=== PATIENT | female | born 1995 | race Caucasian/White ===

== ENCOUNTER 2017-01-27 08:55 | Emergency (ER) | payer BC ==
[~2017-01-27] VITALS: Ht 167.6 cm; Wt 60.0 kg
[2017-01-27 08:55] VITALS: Ht 167.6 cm; Wt 60.0 kg
[~2017-01-27 08:55] MED LIST: AMOX500C2 PO; HYDR-3989 PO; ONDA-55 PO; PHEN20SP2 PO
--- OUTSIDE RECORDS SUMMARY | 2017-01-27 09:00 | XMS REPORT | Referral Summary ---
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 Name Role Phone Josselyn Goyal Primary Care Physician [phone] Encounter [facility] [id number] Date(s): 12/30/14 - 12/30/14 Via JACK Bellamy, Yosef, Family Medicine [address] [place] [address] Dr Navas, [place] [id number] Discharge Diagnosis: ACUTE PHARYNGITIS Discharge Diagnosis: Sore throat Discharge Disposition: Home or Self Care Attending Physician: Karla Calloway APRN Admitting Physician: Karla Calloway APRN Vital Signs Most recent to 1 oldest [Reference Range]: Temperature Tympanic 36.7 degC [36.6-38.1 degC] (12/30/14 1:05 PM) Blood Pressure 124/82 mmHg [90-140/60-90 mmHg] (12/30/14 1:05 PM) Problem List No data available for this section Allergies, Adverse Reactions, Alerts No Known Medication Allergies Medications Anaprox-DS 550 mg oral tablet 1 tabs, Oral, BID, # 60 tabs, 0 Refill(s), Pharmacy: [facility] #[id number], 1 tabs Oral BID Start Date: 12/24/14 Status: Ordered ibuprofen 800 mg oral tablet 1 tabs, Oral, TID, # 60 tabs, 1 Refill(s), Pharmacy: [facility] #[id number], 1 tabs Oral TID Start Date: 11/23/14 Status: Ordered ibuprofen 800 mg oral tablet 1 tabs, Oral, TID, # 60 tabs, 3 Refill(s), Pharmacy: [facility] #[id number], 1 tabs Oral TID Start Date: 12/24/14 Status: Ordered isometheptene/dichloralphenazon/acetaminophen 65 mg-100 mg-325 mg oral capsule See Instructions, 1-2 capsules on onset of ESPINOZA followed by 1 capsule every 1 hour up to 5 capsules per 12 hour period, # 30 tabs, 0 Refill(s) Special Instructions: 1-2 capsules on onset of ESPINOZA followed by 1 capsule every 1 hour up to 5 capsules per 12 hour period Start Date: 12/24/14 Status: Ordered Zithromax Z-Edward 250 mg oral tablet 1 packets, Oral, Daily, as directed on package labeling, X 5 days, # 6 tabs, 0 Refill(s), Pharmacy: [facility] #[id number], 1 packets Oral Daily,x5 days, Instr:as directed on package labeling Special Instructions: as directed on package labeling Start Date: 12/30/14 Stop Date: 01/04/15 Status: Ordered Results No data available for this section Immunizations Vaccine Date Refusal Reason varicella virus vaccine 05/22/99 Procedures No data available for this section Social History No data available for this section Assessment and Plan Extracted from: Title: Ambulatory Patient Education Author: Karla Calloway APRN Date: Allergy Sore Throat A sore throat is pain, burning, irritation, or scratchiness of the throat. There is often pain or tenderness when swallowing or talking. A sore throat may be accompanied by other symptoms, such as coughing, sneezing, fever, and swollen neck glands. A sore throat is often the first sign of another sickness, such as a cold, flu, strep throat, or mononucleosis (commonly known as mono). Most sore throats go away without medical treatment. CAUSES The most common causes of a sore throat include: A viral infection, such as a cold, flu, or mono. A bacterial infection, such as strep throat, tonsillitis, or whooping cough. Seasonal allergies. Dryness in the air. Irritants, such as smoke or pollution. Gastroesophageal reflux disease (GERD). HOME CARE INSTRUCTIONS Only take vuyk-iin-aivrzue medicines as directed by your caregiver. Drink enough fluids to keep your urine clear or pale yellow. Rest as needed. Try using throat sprays, lozenges, or sucking on hard candy to ease any pain (if older than 4 years or as directed). Sip warm liquids, such as broth, herbal tea, or warm water with honey to relieve pain temporarily. You may also eat or drink cold or frozen liquids such as frozen ice pops. Gargle with salt water (mix 1 tsp salt with 8 oz of water). Do not smoke and avoid secondhand smoke. Put a cool-mist humidifier in your bedroom at night to moisten the air. You can also turn on a hot shower and sit in the bathroom with the door closed for 510 minutes. SEEK IMMEDIATE MEDICAL CARE IF: You have difficulty breathing. You are unable to swallow fluids, soft foods, or your saliva. You have increased swelling in the throat. Your sore throat does not get better in 7 days. You have nausea and vomiting. You have a fever or persistent symptoms for more than 23 days. You have a fever and your symptoms suddenly get worse. MAKE SURE YOU: Understand these instructions. Will watch your condition. Will get help right away if you are not doing well or get worse. Document Released: 11/21/2005 Document Revised: 09/30/2013 Document Reviewed: [employer] Patient Information 2014 [employer]. Dentistry Salt Water Gargle This solution will help make your mouth and throat feel better. HOME CARE INSTRUCTIONS Mix 1 teaspoon of salt in 8 ounces of warm water. Gargle with this solution as much or often as you need or as directed. Swish and gargle gently if you have any sores or wounds in your mouth. Do not swallow this mixture. Document Released: 07/18/2005 Document Revised: 01/05/2013 Document Reviewed: ExitCare Patient Information 2014 [employer]. Family Medicine Upper Respiratory Infection, Adult An upper respiratory infection (URI) is also sometimes known as the common cold. The upper respiratory tract includes the nose, sinuses, throat, trachea, and bronchi. Bronchi are the airways leading to the lungs. Most people improve within 1 week, but symptoms can last up to 2 weeks. A residual cough may last even longer. CAUSES Many different viruses can infect the tissues lining the upper respiratory tract. The tissues become irritated and inflamed and often become very moist. Mucus production is also common. A cold is contagious. You can easily spread the virus to others by oral contact. This includes kissing, sharing a glass, coughing, or sneezing. Touching your mouth or nose and then touching a surface, which is then touched by another person, can also spread the virus. SYMPTOMS Symptoms typically develop 1 to 3 days after you come in contact with a cold virus. Symptoms vary from person to person. They may include: Runny nose. Sneezing. Nasal congestion. Sinus irritation. Sore throat. Loss of voice (laryngitis ). Cough. Fatigue. Muscle aches. Loss of appetite. Headache. Low-grade fever. DIAGNOSIS You might diagnose your own cold based on familiar symptoms, since most people get a cold 2 to 3 times a year. Your caregiver can confirm this based on your exam. Most importantly, your caregiver can check that your symptoms are not due to another disease such as strep throat, sinusitis, pneumonia, asthma, or epiglottitis. Blood tests, throat tests, and X-rays are not necessary to diagnose a common cold, but they may sometimes be helpful in excluding other more serious diseases. Your caregiver will decide if any further tests are required. RISKS AND COMPLICATIONS You may be at risk for a more severe case of the common cold if you smoke cigarettes, have chronic heart disease (such as heart failure) or lung disease ( such as asthma), or if you have a weakened immune system. The very young and very old are also at risk for more serious infections. Bacterial sinusitis, middle ear infections, and bacterial pneumonia can complicate the common cold. The common cold can worsen asthma and chronic obstructive pulmonary disease ( COPD). Sometimes, these complications can require emergency medical care and may be life-threatening. PREVENTION The best way to protect against getting a cold is to practice good hygiene. Avoid oral or hand contact with people with cold symptoms. Wash your hands often if contact occurs. There is no clear evidence that vitamin C, vitamin E, echinacea, or exercise reduces the chance of developing a cold. However, it is always recommended to get plenty of rest and practice good nutrition. TREATMENT Treatment is directed at relieving symptoms. There is no cure. Antibiotics are not effective, because the infection is caused by a virus, not by bacteria. Treatment may include: Increased fluid intake. Sports drinks offer valuable electrolytes, sugars, and fluids. Breathing heated mist or steam (vaporizer or shower). Eating chicken soup or other clear broths, and maintaining good nutrition. Getting plenty of rest. Using gargles or lozenges for comfort. Controlling fevers with ibuprofen or acetaminophen as directed by your caregiver. Increasing usage of your inhaler if you have asthma. Zinc gel and zinc lozenges, taken in the first 24 hours of the common cold, can shorten the duration and lessen the severity of symptoms. Pain medicines may help with fever, muscle aches, and throat pain. A variety of non-prescription medicines are available to treat congestion and runny nose. Your caregiver can make recommendations and may suggest nasal or lung inhalers for other symptoms. HOME CARE INSTRUCTIONS Only take ztli-lrt-jeisztx or prescription medicines for pain, discomfort, or fever as directed by your caregiver. Use a warm mist humidifier or inhale steam from a shower to increase air moisture. This may keep secretions moist and make it easier to breathe. Drink enough water and fluids to keep your urine clear or pale yellow. Rest as needed. Return to work when your temperature has returned to normal or as your caregiver advises. You may need to stay home longer to avoid infecting others. You can also use a face mask and careful hand washing to prevent spread of the virus. SEEK MEDICAL CARE IF: After the first few days, you feel you are getting worse rather than better. You need your caregiver's advice about medicines to control symptoms. You develop chills, worsening shortness of breath, or brown or red sputum. These may be signs of pneumonia. You develop yellow or brown nasal discharge or pain in the face, especially when you bend forward. These may be signs of sinusitis. You develop a fever, swollen neck glands, pain with swallowing, or white areas in the back of your throat. These may be signs of strep throat. SEEK IMMEDIATE MEDICAL CARE IF: You have a fever. You develop severe or persistent headache, ear pain, sinus pain, or chest pain. You develop wheezing, a prolonged cough, cough up blood, or have a change in your usual mucus (if you have chronic lung disease). You develop sore muscles or a stiff neck. Document Released: 04/09/2002 Document Revised: 01/05/2013 Document Reviewed: [facility] Patient Information 2014 [employer]. Viral and Bacterial Pharyngitis Pharyngitis is a sore throat. It is an infection of the back of the throat ( pharynx ). HOME CARE Only take medicine as told by your doctor. You may get sick again if you do not take medicine as told. Drink enough fluids to keep your pee (urine ) clear or pale yellow. Rest. Rinse your mouth (gargle ) with salt water ( teaspoon of salt in 8 ounces of water) every 1 to 2 hours. This will help the pain. For children over the age of 7, suck on hard candy or sore throat lozenges. GET HELP RIGHT AWAY IF: There are large, tender lumps in your neck. You have a rash. You cough up green, yellow-brown, or bloody mucus. You have a stiff neck. There is redness, puffiness (swelling ), or very bad pain anywhere on the neck. You drool or are unable to swallow liquids. You throw up (vomit ) or are not able to keep medicine or liquids down. You have very bad pain that will not stop with medicine. You have problems breathing (not from a stuffy nose). You cannot open your mouth completely. You or your child has a temperature by mouth above 102 F (38.9 C), not controlled by medicine. Your baby is older than 3 months with a rectal temperature of 102 F (38.9 C) or higher. Your baby is 3 months old or younger with a rectal temperature of 100.4 F (38 C) or higher. MAKE SURE YOU: Understand these instructions. Will watch this condition. Will get help right away if you or your child is not doing well or gets worse. Document Released: 04/01/2009 Document Revised: 01/05/2013 Document Reviewed: ExitCare Patient Information 2014 [employer]. No follow up information was provided. Extracted from: Title: Office Visit Note Author: Karla Calloway APRN Date: 12/30/14 Assessment/Plan 1.ACUTE PHARYNGITIS, Sore throat Rapid strep inoffice-Negative, will call pt. with cx results when available. Saline nasal washes am and pm. Saline Nasal spray or gel as needed. Increase oral fluids and environmental humidity. Salt water gargles, throat lozenges, Raw honey, throat spray as needed for comfort. OTC pain reliever/ fever commutator tester of choice, per package directions. RTC/IC/ER if symptoms not improving or worsen. Ordered: Office Visit Level 3 Est [id number] Orders: azithromycin, 1 packets, Oral, Daily, as directed on package labeling , X 5 days, # 6 tabs, 0 Refill(s), Pharmacy: [facility] #[id number], 1 packets Oral Daily,x5 days,Instr:as directed on package labeling Group A Strep Culture
--- OUTSIDE RECORDS SUMMARY | 2017-01-27 09:00 | XMS REPORT | Continuity of Care Document ---
Author Author [facility] Organization [facility] Address Unknown Phone Unavailable Support Name Relationship Address Phone RAJINDER MONTESINOS Caregiver [facility] [address] [place] [address] EASTON VELASQUEZ MD Caregiver [address] [place] [address] LISBETH AVILES Next Of Kin [address] [place] [address] Insurance Providers Payer Name Policy Number Subscriber Name Relationship [employer] Other [id number] Lisbeth Aviles L 19 Child Problems Medical Problems Problem Onset Date Status Concussion Unknown Active Possible hairline fracture of spinous process Unknown Active Right ankle strain Unknown Active Right ankle strain Unknown Active Medications Medication Dose Route Sig Days/Qty Instructions Order Date Discontinued Date Status [Topamax] PO DAILY 01/18/14 Active Social History Social History Problem Response Recorded Date/Time Chewing Tobacco Status No 01/18/2014 9:42pm Hx Substance Use No 01/18/2014 9:42pm Hx Alcohol Use No 01/18/2014 9:42pm Query Response Start Date Stop Date Smoking Status Never smoker Hospital Discharge Instructions No hospital discharge instructions. Plan of Care No plan of care. Functional Status Query Response Date Recorded Mental Status Alert Oriented July 24, 2014 10:57pm Allergies, Adverse Reactions, Alerts Allergen Type Severity Reaction Status Last Updated No Known Allergies Active 07/24/14 Immunizations No immunization records. Vital Signs Acute Vital Signs Vital Response Date/Time Temperature (Fahrenheit) 98.6 deg F (96.8 - 99.1) Temperature (Calculated Celsius) 37.24617 degrees C (36.0 - 37.3) Pulse Rate (adult) 93 bpm (60 - 100) Respiratory Rate 16 breaths/min (10 - 20) O2 Sat by Pulse Oximetry 98 % (90 - 100) Blood Pressure 121/61 mm Hg Height (Feet) 5 feet Height (Inches) 6 inches Weight (Kilograms) 59 kg Body Mass Index (BMI) 20.0 Results Test Source Date Result Interp. Ref. Range Comments Alanine Aminotransferase (ALT/SGPT) May 13, 2012 7:15pm < 6 U/L L 9-52 Albumin May 13, 2012 7:15pm 4.3 G/DL N 3.5-5.0 Albumin/Globulin Ratio May 13, 2012 7:15pm 1.3 RATIO N 1.1-2.2 Alkaline Phosphatase May 13, 2012 7:15pm 90 U/L L 130-550 Anion Gap May 13, 2012 7:15pm 14 MEQ/L N 5-15 Aspartate Amino Transf (AST/SGOT) May 13, 2012 7:15pm 21 U/L N 10-40 BUN/Creatinine Ratio May 13, 2012 7:15pm 13 RATIO N 6-26 Basophils # (Auto) May 13, 2012 7:15pm 0.1 T/MM3 N 0-0.2 Basophils (%) (Auto) May 13, 2012 7:15pm 0.9 % N 0-2 Blood Urea Nitrogen May 13, 2012 7:15pm 8.0 MG/DL N 7-17 Calcium Level May 13, 2012 7:15pm 9.2 MG/DL N 8.4-10.2 Calculated Osmolality May 13, 2012 7:15pm 272 MOSM/KG N 261-280 Carbon Dioxide Level May 13, 2012 7:15pm 25 MEQ/L N 22-30 Chloride Level May 13, 2012 7:15pm 103 MEQ/L N 98-107 Creatinine May 13, 2012 7:15pm 0.6 MG/DL N 0.2-1.2 Eosinophils # (Auto) May 13, 2012 7:15pm 1.0 T/MM3 H 0-0.5 Eosinophils (%) (Auto) May 13, 2012 7:15pm 11.4 % H 0-4 Globulin May 13, 2012 7:15pm 3.4 G/DL N 2.4-3.6 Glucose Level May 13, 2012 7:15pm 118 MG/DL H 65-110 Hematocrit May 13, 2012 7:15pm 40.7 % N 35-49 Hemoglobin May 13, 2012 7:15pm 14.0 GM/DL N 11.5-16 Human Chorionic Gonadotropin, Qual December 19, 2011 8:44pm Negative - Lymphocytes # (Auto) May 13, 2012 7:15pm 2.5 T/MM3 N 1.5-6.8 Lymphocytes (%) (Auto) May 13, 2012 7:15pm 28.6 % N 28-48 Mean Corpuscular Hemoglobin May 13, 2012 7:15pm 29.7 UUG N 25-35 Mean Corpuscular Hemoglobin Concent May 13, 2012 7:15pm 34.4 GM/DL N 31 -37 Mean Corpuscular Volume May 13, 2012 7:15pm 86.2 UM3 N 77-102 Mean Platelet Volume May 13, 2012 7:15pm 10.5 UM3 N 9.4-12.4 Monocytes # (Auto) May 13, 2012 7:15pm 0.8 T/MM3 N 0-0.8 Monocytes (%) (Auto) May 13, 2012 7:15pm 8.7 % N 0-9.0 Neutrophils # (Auto) May 13, 2012 7:15pm 4.4 T/MM3 N 1.5-8.0 Neutrophils (%) (Auto) May 13, 2012 7:15pm 50.2 % N 31-62 Platelet Count May 13, 2012 7:15pm 261 T/MM3 N 130-400 Potassium Level May 13, 2012 7:15pm 3.9 MEQ/L N 3.6-5 RDW Standard Deviation May 13, 2012 7:15pm 36.8 FL L 36.9-50.2 Red Blood Count May 13, 2012 7:15pm 4.72 M/MM3 N 4.00-5.30 Sodium Level May 13, 2012 7:15pm 142 MEQ/L N 134-144 Total Bilirubin May 13, 2012 7:15pm 0.20 MG/DL N 0.20-1.30 Total Protein May 13, 2012 7:15pm 7.7 G/DL N 6.3-8.2 Urine Bacteria December 19, 2011 9:00pm 1+ H - Has specimen been collected/obtained? Y Urine Bilirubin December 19, 2011 9:00pm Negative - Has specimen been collected/obtained? Y Urine Blood December 19, 2011 9:00pm Negative - Has specimen been collected/obtained? Y Urine Collection Type December 19, 2011 9:00pm Voided - Has specimen been collected/obtained? Y Urine Color December 19, 2011 9:00pm Yellow - Has specimen been collected/obtained? Y Urine Culture Indicated December 19, 2011 9:00pm Cult not indicated - Has specimen been collected/obtained? Y Urine Glucose (UA) December 19, 2011 9:00pm Negative - Has specimen been collected/obtained? Y Urine Ketones December 19, 2011 9:00pm 1+ H - Has specimen been collected/obtained? Y Urine Leukocyte Esterase December 19, 2011 9:00pm Negative - Has specimen been collected/obtained? Y Urine Mucus December 19, 2011 9:00pm Present - Has specimen been collected/obtained? Y Urine Nitrite December 19, 2011 9:00pm Negative - Has specimen been collected/obtained? Y Urine Protein December 19, 2011 9:00pm Negative - Has specimen been collected/obtained? Y Urine RBC December 19, 2011 9:00pm None seen /HPF - Has specimen been collected/obtained? Y Urine Specific Reading December 19, 2011 9:00pm 1.010 L - Has specimen been collected/obtained? Y Urine Squamous Epithelial Cells December 19, 2011 9:00pm Few - Has specimen been collected/obtained? Y Urine Turbidity December 19, 2011 9:00pm Slt cldy - Has specimen been collected/obtained? Y Urine Urobilinogen December 19, 2011 9:00pm Normal EU/DL - Has specimen been collected/obtained? Y Urine WBC December 19, 2011 9:00pm Trace /HPF - Has specimen been collected/obtained? Y Urine pH December 19, 2011 9:00pm 7.0 - Has specimen been collected/ obtained? Y White Blood Count May 13, 2012 7:15pm 8.7 T/MM3 N 4.5-13.5 Lab Scanned Report December 21, 2013 7:57pm LAB TEST FORM REQUEST [id number] - Immature Granulocyte # (Auto) May 13, 2012 7:15pm 0.02 T/MM3 N 0.00- 0.03 Immature Granulocyte % (Auto) May 13, 2012 7:15pm 0.2 % N 0.0-0.5 Group A Streptococcus Culture Throat December 21, 2013 6:50pm Procedures No known history of procedures. Encounters Encounter Location Date/Time Departed Emergency Room [facility] 07/24/14 8:57pm Recent Diagnosis
--- OUTSIDE RECORDS SUMMARY | 2017-01-27 09:00 | XMS REPORT | Referral Summary ---
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 Name Role Phone Josselyn Goyal Primary Care Physician [phone] Encounter Date(s): 03/07/16 - 03/07/16 [facility] [address] [place], [place] [id number] Discharge Diagnosis: Sore throat Discharge Diagnosis: Acute upper respiratory infection Discharge Disposition: 01-Home or Self Care Attending Physician: Kathryn Banegas PA-C Admitting Physician: Kathryn Banegas PA-C Vital Signs Most recent to 1 oldest [Reference Range]: Peripheral Pulse 72 bpm Rate [60-100 bpm] (03/07/16 11:28 AM) Respiratory Rate 16 br/min [14-20 br/min] (03/07/16 11:28 AM) Blood Pressure 115/62 mmHg [90-140/60-90 mmHg] (03/07/16 11:28 AM) Problem List Condition Effective Dates Status Health Status Informant Asthma(Confirmed) Active Head Active trauma(Confirmed)1 1CONCUSSION Allergies, Adverse Reactions, Alerts No Known Medication Allergies Medications ibuprofen 800 mg oral tablet 1 tabs, Oral, TID, # 60 tabs, 3 Refill(s), Pharmacy: [facility] #[id number], 1 tabs Oral TID Start Date: 12/24/14 Status: Ordered Results No data available for this section Immunizations Vaccine Date Refusal Reason varicella virus vaccine 05/22/99 Procedures No data available for this section Social History Social History Type Response Smoking Status Never smoker Assessment and Plan Extracted from: Title: Ambulatory Patient Education Author: Kathryn Banegas PA-C Date : 03/07/16 Allergy Sore Throat A sore throat is [...] disease (GERD). HOME CARE INSTRUCTIONS Only take swks-dnp-ziehimb medicines as directed by your caregiver. Drink [...] are not doing well or get worse. This information is not intended to replace advice given to you by your health care provider. Make sure you discuss any questions you have with your health care provider. Document Released: 11/21/2005 Document Revised: 08/02/2015 Document Reviewed: [facility] Patient Information 2015 [employer]. Dentistry Salt Water Gargle This solution will help make your mouth and throat feel better. HOME CARE INSTRUCTIONS Mix 1 teaspoon of salt in 8 ounces of warm water. Gargle with this solution as much or often as you need or as directed. Swish and gargle gently if you have any sores or wounds in your mouth. Do not swallow this mixture. This information is not intended to replace advice given to you by your health care provider. Make sure you discuss any questions you have with your health care provider. Document Released: 07/18/2005 Document Revised: 01/05/2013 Document Reviewed: [facility] Patient Information 2015 [employer]apps. ENT Upper Respiratory Infection Most upper respiratory infections (URIs) are a viral infection of the air passages leading to the lungs. A URI affects the nose, throat, and upper air passages. The most common type of URI is nasopharyngitis and is typically referred to as "the common cold." URIs run their course and usually go away on their own. Most of the time, a URI does not require medical attention, but sometimes a bacterial infection in the upper airways can follow a viral infection. This is called a secondary infection. Sinus and middle ear infections are common types of secondary upper respiratory infections. Bacterial pneumonia can also complicate a URI. A URI can worsen asthma and chronic obstructive pulmonary disease (COPD). Sometimes, these complications can require emergency medical care and may be life threatening. CAUSES Almost all URIs are caused by viruses. A virus is a type of germ and can spread from one person to another. RISKS FACTORS You may be at risk for a URI if: You smoke. You have chronic heart or lung disease. You have a weakened defense (immune) system. You are very young or very old. You have nasal allergies or asthma. You work in crowded or poorly ventilated areas. You work in health care facilities or schools. SIGNS AND SYMPTOMS Symptoms typically develop 23 days after you come in contact with a cold virus. Most viral URIs last 710 days. However, viral URIs from the influenza virus (flu virus) can last 1418 days and are typically more severe. Symptoms may include: Runny or stuffy (congested) nose. Sneezing. Cough. Sore throat. Headache. Fatigue. Fever. Loss of appetite. Pain in your forehead, behind your eyes, and over your cheekbones (sinus pain). Muscle aches. DIAGNOSIS Your health care provider may diagnose a URI by: Physical exam. Tests to check that your symptoms are not due to another condition such as: Strep throat. Sinusitis. Pneumonia. Asthma. TREATMENT A URI goes away on its own with time. It cannot be cured with medicines, but medicines may be prescribed or recommended to relieve symptoms. Medicines may help: Reduce your fever. Reduce your cough. Relieve nasal congestion. HOME CARE INSTRUCTIONS Take medicines only as directed by your health care provider. Gargle warm saltwater or take cough drops to comfort your throat as directed by your health care provider. Use a warm mist humidifier or inhale steam from a shower to increase air moisture. This may make it easier to breathe. Drink enough fluid to keep your urine clear or pale yellow. Eat soups and other clear broths and maintain good nutrition. Rest as needed. Return to work when your temperature has returned to normal or as your health care provider advises. You may need to stay home longer to avoid infecting others. You can also use a face mask and careful hand washing to prevent spread of the virus. Increase the usage of your inhaler if you have asthma. Do not use any tobacco products, including cigarettes, chewing tobacco, or electronic cigarettes. If you need help quitting, ask your health care provider. PREVENTION The best way to protect yourself from getting a cold is to practice good hygiene. Avoid oral or hand contact with people with cold symptoms. Wash your hands often if contact occurs. There is no clear evidence that vitamin C, vitamin E, echinacea, or exercise reduces the chance of developing a cold. However, it is always recommended to get plenty of rest, exercise, and practice good nutrition. SEEK MEDICAL CARE IF: You are getting worse rather than better. Your symptoms are not controlled by medicine. You have chills. You have worsening shortness of breath. You have brown or red mucus. You have yellow or brown nasal discharge. You have pain in your face, especially when you bend forward. You have a fever. You have swollen neck glands. You have pain while swallowing. You have white areas in the back of your throat. SEEK IMMEDIATE MEDICAL CARE IF: You have severe or persistent: Headache. Ear pain. Sinus pain. Chest pain. You have chronic lung disease and any of the following: Wheezing. Prolonged cough. Coughing up blood. A change in your usual mucus. You have a stiff neck. You have changes in your: Vision. Hearing. Thinking. Mood. MAKE SURE YOU: Understand these instructions. Will watch your condition. Will get help right away if you are not doing well or get worse. This information is not intended to replace advice given to you by your health care provider. Make sure you discuss any questions you have with your health care provider. Document Released: 04/09/2002 Document Revised: 08/02/2015 Document Reviewed: [facility] Patient Information 2015 [facility]. No follow up information was provided. Extracted from: Title: Office Visit Note- URI Author: Kathryn Banegas PA-C Date: 03/07 Assessment/Plan Acute upper respiratory infection Pt advised the RSS was negative. Try to rest and push fluids. Try warm salt water gargles. Call if worsening or not improving. Ordered: Office Visit Level 3 Est 86803 Sore throat, Sore throat RSS was negative. Ordered: Office Visit Level 3 Est 02795
--- OUTSIDE RECORDS SUMMARY | 2017-01-27 09:00 | XMS REPORT | Referral Summary ---
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 Care Machine Tailer Name Role Phone Josselyn Goyal Primary Care Physician [phone] Encounter [facility] [id number] Date(s): 11/23/14 - 11/23/14 [facility] [address] [place] [address] Dr [place], [place] [id number] Discharge Diagnosis: Headaches Discharge Diagnosis: Menstrual cramps Discharge Disposition: Home or Self Care Attending Physician: Karla Calloway APRN Admitting Physician: Karla Calloway APRN Vital Signs Most recent to 1 oldest [Reference Range]: Temperature Tympanic 37.0 degC [36.6-38.1 degC] (11/23/14 1:00 PM) Blood Pressure 114/82 mmHg [90-140/60-90 mmHg] (11/23/14 1:00 PM) Problem List No data available for this section Allergies, Adverse Reactions, Alerts No Known Medication Allergies Medications ibuprofen 800 mg oral tablet 1 tabs, Oral, TID, # 60 tabs, 1 Refill(s), Pharmacy: [facility] #[id number], 1 tabs Oral TID Start Date: 11/23/14 Status: Ordered Results No data available for this section Immunizations Vaccine Date Refusal Reason varicella virus vaccine 05/22/99 Procedures No data available for this section Social History No data available for this section Assessment and Plan Extracted from: Title: Ambulatory Patient Education Author: Karla Calloway APRN Date: Family Medicine Recurrent Migraine Headache A migraine headache is very bad, throbbing pain on one or both sides of your head. Recurrent migraines keep coming back. Talk to your doctor about what things may bring on (trigger ) your migraine headaches. HOME CARE Only take medicines as told by your doctor. Lie down in a dark, quiet room when you have a migraine. Keep a journal to find out if certain things bring on migraine headaches. For example, write down: What you eat and drink. How much sleep you get. Any change to your diet or medicines. Lessen how much alcohol you drink. Quit smoking if you smoke. Get enough sleep. Lessen any stress in your life. Keep lights dim if bright lights bother you or make your migraines worse. GET HELP RIGHT AWAY IF: Your migraine becomes really bad. You have a fever. You have a stiff neck. You have trouble seeing. Your muscles are weak, or you lose muscle control. You lose your balance or have trouble walking. You feel like you will pass out (faint ), or you pass out. You have really bad symptoms that are different than your first symptoms. Medicine does not help your migraines. Your pain keeps coming back. MAKE SURE YOU: Understand these instructions. Will watch your condition. Will get help right away if you are not doing well or get worse. Document Released: 07/23/2009 Document Revised: 01/05/2013 Document Reviewed: [facility] Patient Information 2014 Commun[employer][email or web address]. Dysmenorrhea Dysmenorrhea is pain during a menstrual period. The pain is caused by the tightening (raúl ) of the muscles of the uterus. Headache, feeling sick to your stomach (nausea ), throwing up (vomiting ), or low back pain may occur with this condition. HOME CARE Only take medicine as told by your doctor. Place a heating pad or hot water bottle on your lower back or belly ( abdomen ). Do not sleep with a heating pad. Exercise may help lessen the pain. Massage the lower back or belly. Stop smoking. Avoid alcohol or caffeine. Try yoga or acupuncture. GET HELP RIGHT AWAY IF: Your pain does not get better with medicine. Your pain gets worse while taking pain medicine. You have a fever. You keep feeling sick to your stomach or keep throwing up. Your pain moves to your upper belly. Your period bleeding is heavier than normal. You pass out (faint ). MAKE SURE YOU: Understand these instructions. Will watch your condition. Will get help right away if you are not doing well or get worse. Document Released: 01/10/2010 Document Revised: 01/05/2013 Document Reviewed: [facility] Patient Information 2014 Commun.it. No follow up information was provided. Extracted from: Title: Office Visit Note Author: Karla Calloway APRN Date: 11/23/14 Assessment/Plan Headaches Advised pt. to use medication as previously prescribed. Ordered: Office Visit Level 3 Est 39661 Menstrual cramps Rx to be taken as discussed. Pt. to return next month with report. RTC/IC/ER if symptoms not improving or worsen. Ordered: Office Visit Level 3 Est 76284 Orders: ibuprofen, 1 tabs, Oral, TID, # 60 tabs, 1 Refill(s), Pharmacy: [facility] #[id number], 1 tabs Oral TID
--- OUTSIDE RECORDS SUMMARY | 2017-01-27 09:00 | XMS REPORT ---
Author Author GENERATED, SYSTEM Organization Unknown Address Unknown Phone Unavailable Care Team Providers Care Sewer Tapper Name Role Phone UNASSIGNED DOCTOR , DOCTOR PP [phone] Reason For Visit Chief Complaint RIGHT WRIST PAIN Social History Functional Status Vital Signs Results DX Radiology from 12/02/2016 9:47 PMWRIST RIGHT 3 VIEWS History: Right wrist injury. Technique: 3 view wrist Priors: None. Findings: There is no acute fracture or subluxation. The distal radius and ulna are intact. The carpals are normally aligned. Impression: Unremarkable radiographs of the right wrist. Electronically signed by: Gurpreet Cochran MD Dictated: 12/03/2016 10:07 Problems Encounter Diagnosis No relevant problems exist. Encounters Encounter Diagnosis No relevant problems exist. Plan of Care Procedures No relevant procedures performed. Immunizations No immunizations administered or ordered. Hospital Course Hospital Discharge Instructions Allergies, Adverse Reactions, Alerts * Latex Allergy has not been assessed. * IV Contrast Allergy has not been assessed. Medication Medication reconciliation has not been performed.
--- OUTSIDE RECORDS SUMMARY | 2017-01-27 09:00 | XMS REPORT | Referral Summary ---
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 Care Automobile Locator Name Role Phone Josselyn Goyal Primary Care Physician [phone] Encounter [facility] [id number] Date(s): 02/21/15 - 02/21/15 [facility] [address] [place] [address] Dr [place], [place] [address] Discharge Diagnosis: Folliculitis Discharge Disposition: Home or Self Care Attending Physician: Karla Calloway APRN Admitting Physician: Karla Calloway APRN Vital Signs Most recent to 1 oldest [Reference Range]: Blood Pressure 124/82 mmHg [90-140/60-90 mmHg] (02/21/15 10:50 AM) Problem List Condition Effective Dates Status Health Status Informant Asthma(Confirmed) Active Head Active trauma(Confirmed)1 1CONCUSSION Allergies, Adverse Reactions, Alerts No Known Medication Allergies Medications Anaprox-DS 550 mg oral tablet 1 tabs, Oral, BID, # 60 tabs, 0 Refill(s), Pharmacy: [facility] #[id number], 1 tabs Oral BID Start Date: 12/24/14 Status: Ordered Bactroban 2% topical ointment 1 andrea, Topical, TID, # 22 g, 0 Refill(s), Pharmacy: [facility] #[id number] Start Date: 02/21/15 Status: Ordered doxycycline hyclate 100 mg oral tablet 1 tabs, Oral, BID, X 14 days, # 28 tabs, 0 Refill(s), Pharmacy: [facility] #[id number], 1 tabs Oral BID,x14 days Start Date: 02/21/15 Stop Date: 03/07/15 Status: Ordered ibuprofen 800 mg oral tablet 1 tabs, Oral, TID, # 60 tabs, 1 Refill(s), Pharmacy: [facility] #[id number], 1 tabs Oral TID Start Date: 11/23/14 Status: Ordered ibuprofen 800 mg oral tablet 1 tabs, Oral, TID, # 60 tabs, 3 Refill(s), Pharmacy: [facility] #[id number], 1 tabs Oral TID Start Date: 12/24/14 [...] hour period Start Date: 12/24/14 Status: Ordered naproxen 500 mg oral delayed release tablet 1 tabs, Oral, BID, as needed for headache, # 90 tabs, 2 Refill(s), Pharmacy: [facility] #[id number], 1 tabs Oral BID,PRN:as needed for headache Start Date: 01/06/15 Status: Ordered nortriptyline 10 mg oral capsule 1 caps, Oral, Bedtime (once a day), # 30 caps, 0 Refill(s), Pharmacy: [facility] #[id number], 1 caps Oral Bedtime (once a day) Start Date: 01/06/15 Status: Ordered Results No data available for this section Immunizations Vaccine Date Refusal Reason varicella virus vaccine 05/22/99 Procedures No data available for this section Social History Social History Type Response Smoking Status Never smoker Assessment and Plan Extracted from: Title: Ambulatory Patient Education Author: Karla Calloway APRN Date: Family Medicine Folliculitis Folliculitis is redness, soreness, and swelling (inflammation ) of the hair follicles. This condition can occur anywhere on the body. People with weakened immune systems, diabetes, or obesity have a greater risk of getting folliculitis. CAUSES Bacterial infection. This is the most common cause. Fungal infection. Viral infection. Contact with certain chemicals, especially oils and tars. Long-term folliculitis can result from bacteria that live in the nostrils. The bacteria may trigger multiple outbreaks of folliculitis over time. SYMPTOMS Folliculitis most commonly occurs on the scalp, thighs, legs, back, buttocks, and areas where hair is shaved frequently. An early sign of folliculitis is a small, white or yellow, pus-filled, itchy lesion (pustule ). These lesions appear on a red, inflamed follicle. They are usually less than 0.2 inches (5 mm ) wide. When there is an infection of the follicle that goes deeper, it becomes a boil or furuncle. A group of closely packed boils creates a larger lesion ( carbuncle ). Carbuncles tend to occur in hairy, sweaty areas of the body. DIAGNOSIS Your caregiver can usually tell what is wrong by doing a physical exam. A sample may be taken from one of the lesions and tested in a lab. This can help determine what is causing your folliculitis. TREATMENT Treatment may include: Applying warm compresses to the affected areas. Taking antibiotic medicines orally or applying them to the skin. Draining the lesions if they contain a large amount of pus or fluid. Laser hair removal for cases of long-lasting folliculitis. This helps to prevent regrowth of the hair. HOME CARE INSTRUCTIONS Apply warm compresses to the affected areas as directed by your caregiver. If antibiotics are prescribed, take them as directed. Finish them even if you start to feel better. You may take ynla-lek-bizinst medicines to relieve itching. Do not shave irritated skin. Follow up with your caregiver as directed. SEEK IMMEDIATE MEDICAL CARE IF: You have increasing redness, swelling, or pain in the affected area. You have a fever. MAKE SURE YOU: Understand these instructions. Will watch your condition. Will get help right away if you are not doing well or get worse. Document Released: 12/23/2002 Document Revised: 04/14/2013 Document Reviewed: [facility] Patient Information 2014 [employer] [facility]. Ingrown Hair An ingrown hair is a hair that curls and re-enters the skin instead of growing straight out of the skin. It happens most often with curly hair. It is usually more severe in the neck area, but it can occur in any shaved area, including the manning area, groin, scalp, and legs. An ingrown hair may cause small pockets of infection. CAUSES Shaving closely, tweezing, or waxing, especially curly hair. Using hair removal creams can sometimes lead to ingrown hairs, especially in the groin. SYMPTOMS Small bumps on the skin. The bumps may be filled with pus. Pain. Itching. DIAGNOSIS Your caregiver can usually tell what is wrong by doing a physical exam. TREATMENT If there is a severe infection, your caregiver may prescribe antibiotic medicines. Laser hair removal may also be done to help prevent regrowth of the hair. HOME CARE INSTRUCTIONS Do not shave irritated skin. You may start shaving again once the irritation has gone away. If you are prone to ingrown hairs, consider not shaving as much as possible. If antibiotics are prescribed, take them as directed. Finish them even if you start to feel better. You may use a facial sponge in a gentle circular motion to help dislodge ingrown hairs on the face. You may use a hair removal cream weekly, especially on the legs and underarms. Stop using the cream if it irritates your skin. Use caution when using hair removal creams in the groin area. SHAVING INSTRUCTIONS AFTER TREATMENT Shower before shaving. Keep areas to be shaved packed in warm, moist wraps for several minutes before shaving. The warm, moist environment helps soften the hairs and makes ingrown hairs less likely to occur. Use thick shaving gels. Use a bump fighter razor that cuts hair slightly above the skin level or use an electric shaver with a longer shave setting. Shave in the direction of hair growth. Avoid making multiple razor strokes. Use moisturizing lotions after shaving. Document Released: 01/20/2002 Document Revised: 04/14/2013 Document Reviewed: [facility] Patient Information 2014 [employer]. No follow up information was provided. Extracted from: Title: Office Visit Note Author: Karla Calloway APRN Date: 02/21/15 Assessment/Plan 1.Folliculitis Rx to be taken as prescribed. Ointment to rash BID. No deodorant, antiperspirant, or perfumed soaps/lotions to underarms until resolved. May need to switch body soap/ laundry detergent. Pt. to call at end of week with up date of symptoms. Noted given for school today. Ordered: Office Visit Level 3 Est 20797 Orders: doxycycline, 1 tabs, Oral, BID, X 14 days, # 28 tabs, 0 Refill(s), Pharmacy: [facility] #[id number], 1 tabs Oral BID,x14 days mupirocin topical, 1 andrea, Topical, TID, # 22 g, 0 Refill(s), Pharmacy: [facility] #[id number]
--- OUTSIDE RECORDS SUMMARY | 2017-01-27 09:00 | XMS REPORT | Referral Summary ---
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 Care Tissue Technologist Name Role Phone Josselyn Goyal Primary Care Physician [phone] Encounter [facility] [id number] Date(s): 12/24/14 - 12/24/14 Via [facility], Y[place], Family Medicine [address] [place] [address] Dr [place], [place] [address] Discharge Diagnosis: Headaches Discharge Diagnosis: Menstrual cramps Discharge Disposition: Home or Self Care Attending Physician: Karla Calloway APRN Admitting Physician: Karla Calloway APRN Vital Signs Most recent to 1 oldest [Reference Range]: Temperature Tympanic 36.3 degC [36.6-38.1 degC] *LOW* (12/24/14 3:52 PM) Blood Pressure 124/82 mmHg [90-140/60-90 mmHg] (12/24/14 3:52 PM) Problem List No data available for this section Allergies, Adverse Reactions, Alerts No Known Medication Allergies Medications Anaprox-DS 550 mg oral tablet 1 tabs, Oral, BID, # 60 tabs, 0 Refill(s), Pharmacy: [facility] #[id number], 1 tabs Oral BID Start Date: 12/24/14 Status: Ordered ibuprofen 800 mg oral tablet 1 tabs, Oral, TID, # 60 tabs, 1 Refill(s), Pharmacy: [facility] #[id number], 1 tabs Oral TID Start Date: 11/23/14 Status: Ordered ibuprofen 800 mg oral tablet 1 tabs, Oral, TID, # 60 tabs, 3 Refill(s), Pharmacy: [facility] #[id number], 1 tabs Oral TID Start Date: 12/24/14 [...] hour period Start Date: 12/24/14 Status: Ordered Results No data available for this section Immunizations Vaccine Date Refusal Reason varicella virus vaccine 05/22/99 Procedures No data available for this section Social History No data available for this section Assessment and Plan Extracted from: Title: Ambulatory Patient Education Author: Karla Calloway PRECINCT CAPTAIN Date: Family Medicine Migraine Headache A migraine headache is an intense, throbbing pain on one or both sides of your head. A migraine can last for 30 minutes to several hours. CAUSES The exact cause of a migraine headache is not always known. However, a migraine may be caused when nerves in the brain become irritated and release chemicals that cause inflammation. This causes pain. SYMPTOMS Pain on one or both sides of your head. Pulsating or throbbing pain. Severe pain that prevents daily activities. Pain that is aggravated by any physical activity. Nausea, vomiting, or both. Dizziness. Pain with exposure to bright lights, loud noises, or activity. General sensitivity to bright lights, loud noises, or smells. Before you get a migraine, you may get warning signs that a migraine is coming ( aura ). An aura may include: Seeing flashing lights. Seeing bright spots, halos, or zig-zag lines. Having tunnel vision or blurred vision. Having feelings of numbness or tingling. Having trouble talking. Having muscle weakness. MIGRAINE TRIGGERS Alcohol. Smoking. Stress. Menstruation. Aged cheeses. Foods or drinks that contain nitrates, glutamate, aspartame, or tyramine. Lack of sleep. Chocolate. Caffeine. Hunger. Physical exertion. Fatigue. Medicines used to treat chest pain (nitroglycerine ), control pills, estrogen, and some blood pressure medicines. DIAGNOSIS A migraine headache is often diagnosed based on: Symptoms. Physical examination. A CT scan or MRI of your head. TREATMENT Medicines may be given for pain and nausea. Medicines can also be given to help prevent recurrent migraines. HOME CARE INSTRUCTIONS Only take ezfs-lbj-aclhlmw or prescription medicines for pain or discomfort as directed by your caregiver. The use of long-term narcotics is not recommended. Lie down in a dark, quiet room when you have a migraine. Keep a journal to find out what may trigger your migraine headaches. For example, write down: What you eat and drink. How much sleep you get. Any change to your diet or medicines. Limit alcohol consumption. Quit smoking if you smoke. Get 7 to 9 hours of sleep, or as recommended by your caregiver. Limit stress. Keep lights dim if bright lights bother you and make your migraines worse. SEEK IMMEDIATE MEDICAL CARE IF: Your migraine becomes severe. You have a fever. You have a stiff neck. You have vision loss. You have muscular weakness or loss of muscle control. You start losing your balance or have trouble walking. You feel faint or pass out. You have severe symptoms that are different from your first symptoms. MAKE SURE YOU: Understand these instructions. Will watch your condition. Will get help right away if you are not doing well or get worse. Document Released: 10/14/2006 Document Revised: 01/05/2013 Document Reviewed: [facility] Patient Information 2014 [employer]. Recurrent Migraine Headache A migraine headache is an intense, throbbing pain on one or both sides of your head. Recurrent migraines keep coming back. A migraine can last for 30 minutes to several hours. CAUSES The exact cause of a migraine headache is not always known. However, a migraine may be caused when nerves in the brain become irritated and release chemicals that cause inflammation. This causes pain. SYMPTOMS Pain on one or both sides of your head. Pulsating or throbbing pain. Severe pain that prevents daily activities. Pain that is aggravated by any physical activity. Nausea, vomiting, or both. Dizziness. Pain with exposure to bright lights, loud noises, or activity. General sensitivity to bright lights, loud noises, or smells. Before you get a migraine, you may get warning signs that a migraine is coming ( aura ). An aura may include: Seeing flashing lights. Seeing bright spots, halos, or zig-zag lines. Having tunnel vision or blurred vision. Having feelings of numbness or tingling. Having trouble talking. Having muscle weakness. MIGRAINE TRIGGERS Examples of triggers of migraine headaches include: Alcohol. Smoking. Stress. Menstruation. Aged cheeses. Foods or drinks that contain nitrates, glutamate, aspartame, or tyramine. Lack of sleep. Chocolate. Caffeine. Hunger. Physical exertion. Fatigue. Medicines used to treat chest pain (nitroglycerine ), control pills, estrogen, and some blood pressure medicines. DIAGNOSIS A recurrent migraine headache is often diagnosed based on: Symptoms. Physical examination. A CT scan or MRI of your head. TREATMENT Medicines may be given for pain and nausea. Medicines can also be given to help prevent recurrent migraines. HOME CARE INSTRUCTIONS Only take gzmg-iyf-oflxvyi or prescription medicines for pain or discomfort as directed by your caregiver. The use of long-term narcotics is not recommended. Lie down in a dark, quiet room when you have a migraine. Keep a journal to find out what may trigger your migraine headaches. For example, write down: What you eat and drink. How much sleep you get. Any change to your diet or medicines. Limit alcohol consumption. Quit smoking if you smoke. Get 7 to 9 hours of sleep, or as recommended by your caregiver. Limit stress. Keep lights dim if bright lights bother you and make your migraines worse. SEEK MEDICAL CARE IF: You do not get relief from the medicines given to you. You have a recurrence of pain. SEEK IMMEDIATE MEDICAL CARE IF: Your migraine becomes severe. You have a fever. You have a stiff neck. You have loss of vision. You have muscular weakness or loss of muscle control. You start losing your balance or have trouble walking. You feel faint or pass out. You have severe symptoms that are different from your first symptoms. MAKE SURE YOU: Understand these instructions. Will watch your condition. Will get help right away if you are not doing well or get worse. Document Released: 07/09/2002 Document Revised: 01/05/2013 Document Reviewed: [facility] Patient Information 2014 [employer] [facility]. Dysmenorrhea Menstrual pain is caused by the muscles of the uterus tightening (raúl ) during a menstrual period. The muscles of the uterus contract due to the chemicals in the uterine lining. Primary dysmenorrhea is menstrual cramps that last a couple of days when you start having menstrual periods or soon after. This often begins after a teenager starts having her period. As a woman gets older or has a baby, the cramps will usually lesson or disappear. Secondary dysmenorrhea begins later in life, lasts longer, and the pain may be stronger than primary dysmenorrhea. The pain may start before the period and last a few days after the period. This type of dysmenorrhea is usually caused by an underlying problem such as: The tissue lining the uterus grows outside of the uterus in other areas of the body (endometriosis ). The endometrial tissue, which normally lines the uterus, is found in or grows into the muscular garcia of the uterus (adenomyosis ). The pelvic blood vessels are engorged with blood just before the menstrual period (pelvic congestive syndrome ). Overgrowth of cells in the lining of the uterus or cervix (polyps of the uterus or cervix). Falling down of the uterus (prolapse ) because of loose or stretched ligaments. Depression. Bladder problems, infection, or inflammation. Problems with the intestine, a tumor, or irritable bowel syndrome. Cancer of the female organs or bladder. A severely tipped uterus. A very tight opening or closed cervix. Noncancerous tumors of the uterus (fibroids ). Pelvic inflammatory disease (PID). Pelvic scarring (adhesions ) from a previous surgery. Ovarian cyst. An intrauterine device (IUD) used for control. CAUSES The cause of menstrual pain is often unknown. SYMPTOMS Cramping or throbbing pain in your lower abdomen. Sometimes, a woman may also experience headaches. Lower back pain. Feeling sick to your stomach (nausea ) or vomiting. Diarrhea. Sweating or dizziness. DIAGNOSIS A diagnosis is based on your history, symptoms, physical examination, diagnostic tests, or procedures. Diagnostic tests or procedures may include: Blood tests. An ultrasound. An examination of the lining of the uterus (dilation and curettage , D&C ) . An examination inside your abdomen or pelvis with a scope (laparoscopy ). X-rays. CT Scan. MRI. An examination inside the bladder with a scope (cystoscopy ). An examination inside the intestine or stomach with a scope (colonoscopy, gastroscopy ). TREATMENT Treatment depends on the cause of the dysmenorrhea. Treatment may include: Pain medicine prescribed by your caregiver. control pills. Hormone replacement therapy. Nonsteroidal anti-inflammatory drugs (NSAIDs). These may help stop the production of prostaglandins. An IUD with progesterone hormone in it. Acupuncture. Surgery to remove adhesions, endometriosis, ovarian cyst, or fibroids. Removal of the uterus (hysterectomy ). Progesterone shots to stop the menstrual period. Cutting the nerves on the sacrum that go to the female organs (presacral neurectomy ). Electric currant to the sacral nerves (sacral nerve stimulation ). Antidepressant medicine. Psychiatric therapy, counseling, or group therapy. Exercise and physical therapy. Meditation and yoga therapy. HOME CARE INSTRUCTIONS Only take mqse-jpy-ycwaqim or prescription medicines for pain, discomfort, or fever as directed by your caregiver. Place a heating pad or hot water bottle on your lower back or abdomen. Do not sleep with the heating pad. Use aerobic exercises, walking, swimming, biking, and other exercises to help lessen the cramping. Massage to the lower back or abdomen may help. Stop smoking. Avoid alcohol and caffeine. Yoga, meditation, or acupuncture may help. SEEK MEDICAL CARE IF: The pain does not get better with medicine. You have pain with sexual intercourse. SEEK IMMEDIATE MEDICAL CARE IF: Your pain increases and is not controlled with medicines. You have a fever. You develop nausea or vomiting with your period not controlled with medicine. You have abnormal vaginal bleeding with your period. You pass out. MAKE SURE YOU: Understand these instructions. Will watch your condition. Will get help right away if you are not doing well or get worse. Document Released: 10/14/2006 Document Revised: 01/05/2013 Document Reviewed: [employer] Patient Information 2014 [employer]. No follow up information was provided. Extracted from: Title: Office Visit Note Author: Karla Calloway APRN Date: 12/24/14 Assessment/Plan 1.Menstrual cramps Refill Ibuprofen. If pt. has a Migraine and Menstrual cramps will trial Anaprox DS 550 mg BID. RTC/IC/ER if symptoms not improving or worsen. Ordered: Office Visit Level 3 Est 16106 2.Headaches Will trial Midrin as prescribed. Pt. to call in report of effectiveness next week. Ordered: Office Visit Level 3 Est 42765 Orders: ibuprofen, 1 tabs, Oral, TID, # 60 tabs, 3 Refill(s), Pharmacy: [facility] #[id number], 1 tabs Oral TID isometheptene/dichloralphenazon/acetaminophen, See Instructions, 1-2 capsules on onset of ESPINOZA followed by 1 capsule every 1 hour up to 5 capsules per 12 hour period, # 30 tabs, 0 Refill(s) naproxen, 1 tabs, Oral, BID, # 60 tabs, 0 Refill(s), Pharmacy: [facility] #[id number], 1 tabs Oral BID
--- OUTSIDE RECORDS SUMMARY | 2017-01-27 09:00 | XMS REPORT | Referral Summary ---
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 Care Top Lift Scourer Name Role Phone Josselyn Goyal Primary Care Physician [phone] Encounter [facility] Date(s): 01/06/15 - 01/06/15 Via [facility], JACK, [facility], Neurology [address] [facility] [address] [place], [place] [address] Discharge Diagnosis: Chronic migraine Discharge Disposition: Home or Self Care Attending Physician: Weston Cervantes MD Admitting Physician: Weston Cervantes MD Referring Physician: Sathya Goyal MD Vital Signs Most recent to 1 oldest [Reference Range]: Peripheral Pulse 72 bpm Rate [60-100 bpm] (01/06/15 9:41 AM) Blood Pressure 108/64 mmHg [90-140/60-90 mmHg] (01/06/15 9:41 AM) Problem List Condition Effective Dates Status Health Status Informant Asthma(Confirmed) Active Head Active trauma(Confirmed)1 1CONCUSSION Allergies, Adverse Reactions, Alerts No Known Medication Allergies Medications Anaprox-DS 550 mg oral tablet 1 tabs, Oral, BID, # 60 tabs, 0 Refill(s), [facility] #[id number], 1 tabs Oral BID Start Date: 12/24/14 Status: Ordered ibuprofen 800 mg oral tablet 1 tabs, Oral, TID, # 60 tabs, 1 Refill(s), [facility] #[id number], 1 tabs Oral TID Start Date: 11/23/14 Status: Ordered ibuprofen 800 mg oral tablet 1 tabs, Oral, TID, # 60 tabs, 3 Refill(s), Pharmacy: [facility] #[id number], 1 tabs Oral TID Start Date: 12/24/14 [...] headache, # 90 tabs, 2 Refill(s), Pharmacy: [facility] #[id number], 1 tabs Oral BID,PRN:as needed for headache Start Date: 01/06/15 Status: Ordered nortriptyline 10 mg oral capsule 1 caps, Oral, Bedtime (once a day), # 30 caps, 0 Refill(s), Pharmacy: [facility] #[id number], 1 caps Oral Bedtime (once a day) Start Date: 01/06/15 Status: Ordered Results No data available for this section Immunizations Vaccine Date Refusal Reason varicella virus vaccine 05/22/99 Procedures No data available for this section Social History Social History Type Response Smoking Status Never smoker Assessment and Plan Extracted from: Title: Neurology initial Office Author: Weston Cervantes MD Date: 01/06/15 Visit Note Assessment/Plan 1.Chronic migraine Discontinue ibuprofen For migraine prophylaxis: Nortriptyline 10mg QHS for prophylaxis, side effects including explained to the pnt PRN medications: -Naproxen 500mg BID PRN Consider long acting triptan for menstrual migraines (frovatriptan) if naproxen does not work Titrate nortriptyline up as needed. I asked the patient to call every 3-4 weeks with updates, earlier if side effects. She voiced understanding. Time spent with the patient: 30min, >50% spent counseling the patient Return to clinic in5 months
--- OUTSIDE RECORDS SUMMARY | 2017-01-27 09:00 | XMS REPORT | Referral Summary ---
Author Author Via [facility] [place], [facility] Organization [facility] [place] [facility] Address Unknown Phone Unavailable Care Team Providers Care Optometrist Name Role Phone Josselyn Goyal Primary Care Physician [phone] Encounter [facility] [id number] Date(s): 01/09/16 - 01/09/16 Via [facility] [place], [address] [place] [address] Discharge Diagnosis: Strep throat Discharge Diagnosis: Leukocytosis Discharge Disposition: 01-Home or Self Care Attending Physician: Sathya Goyal MD Admitting Physician: Sathya Goyal MD Vital Signs Most recent to 1 oldest [Reference Range]: Peripheral Pulse 82 bpm Rate [60-100 bpm] (01/09/16 2:29 PM) Blood Pressure 110/68 mmHg [90-140/60-90 mmHg] (01/09/16 2:29 PM) SpO2 98 % (01/09/16 2:29 PM) Problem List Condition Effective Dates Status Health Status Informant Asthma(Confirmed) Active Head Active trauma(Confirmed)1 1CONCUSSION Allergies, Adverse Reactions, Alerts No Known Medication Allergies Medications ibuprofen 800 mg oral tablet 1 tabs, Oral, TID, # 60 tabs, 3 Refill(s), Pharmacy: [facility] #[id number], 1 tabs Oral TID Start Date: 12/24/14 Status: Ordered Results No data available for this section Immunizations Vaccine Date Refusal Reason varicella virus vaccine 05/22/99 Procedures No data available for this section Social History Social History Type Response Smoking Status Never smoker Assessment and Plan Extracted from: Title: Ambulatory Patient Education Author: Sathya Goyal MD Date: Family Medicine Tonsillitis Tonsillitis is an infection of the throat that causes the tonsils to become red , tender, and swollen. Tonsils are collections of lymphoid tissue at the back of the throat. Each tonsil has crevices (crypts). Tonsils help fight nose and throat infections and keep infection from spreading to other parts of the body for the first 18 months of life. CAUSES Sudden (acute) tonsillitis is usually caused by infection with streptococcal bacteria. Long-lasting (chronic) tonsillitis occurs when the crypts of the tonsils become filled with pieces of food and bacteria, which makes it easy for the tonsils to become repeatedly infected. SYMPTOMS Symptoms of tonsillitis include: A sore throat, with possible difficulty swallowing. White patches on the tonsils. Fever. Tiredness. New episodes of snoring during sleep, when you did not snore before. Small, foul-smelling, yellowish-white pieces of material (tonsilloliths) that you occasionally cough up or spit out. The tonsilloliths can also cause you to have bad breath. DIAGNOSIS Tonsillitis can be diagnosed through a physical exam. Diagnosis can be confirmed with the results of lab tests, including a throat culture. TREATMENT The goals of tonsillitis treatment include the reduction of the severity and duration of symptoms and prevention of associated conditions. Symptoms of tonsillitis can be improved with the use of steroids to reduce the swelling. Tonsillitis caused by bacteria can be treated with antibiotic medicines. Usually , treatment with antibiotic medicines is started before the cause of the tonsillitis is known. However, if it is determined that the cause is not bacterial, antibiotic medicines will not treat the tonsillitis. If attacks of tonsillitis are severe and frequent, your health care provider may recommend surgery to remove the tonsils (tonsillectomy). HOME CARE INSTRUCTIONS Rest as much as possible and get plenty of sleep. Drink plenty of fluids. While the throat is very sore, eat soft foods or liquids, such as sherbet, soups, or instant breakfast drinks. Eat frozen ice pops. Gargle with a warm or cold liquid to help soothe the throat. Mix 1/4 teaspoon of salt and 1/4 teaspoon of baking soda in 8 oz of water. SEEK MEDICAL CARE IF: Large, tender lumps develop in your neck. A rash develops. A green, yellow-brown, or bloody substance is coughed up. You are unable to swallow liquids or food for 24 hours. You notice that only one of the tonsils is swollen. SEEK IMMEDIATE MEDICAL CARE IF: You develop any new symptoms such as vomiting, severe headache, stiff neck, chest pain, or trouble breathing or swallowing. You have severe throat pain along with drooling or voice changes. You have severe pain, unrelieved with recommended medications. You are unable to fully open the mouth. You develop redness, swelling, or severe pain anywhere in the neck. You have a fever. MAKE SURE YOU: Understand these instructions. Will watch your condition. Will get help right away if you are not doing well or get worse. This information is not intended to replace advice given to you by your health care provider. Make sure you discuss any questions you have with your health care provider. Document Released: 07/24/2006 Document Revised: 02/28/2015 Document Reviewed: [facility] Patient Information 2015 [employer]. No follow up information was provided. Extracted from: Title: Office Visit Note Author: Sathya Goyal MD Date: 01/09/16 Assessment/Plan Elevated white blood cell count, unspecified, Leukocytosis If the throat doesn't improve , would like to reevaluate. Ordered: Office Visit Level 3 Est 95197 Strep throat, Streptococcal pharyngitis Ordered: Office Visit Level 3 Est 43444
--- OUTSIDE RECORDS SUMMARY | 2017-01-27 09:00 | XMS REPORT | Referral Summary ---
Author Author Via [facility] [place], Family Medicine Organization [facility] Address Unknown Phone Unavailable Care Team Providers Care Goat Farmer Name Role Phone Josselyn Goyal Primary Care Physician [phone] Encounter [facility] Date(s): 03/19/16 - 03/19/16 Via [facility] [place] [address] [place], [place] [address] Discharge Disposition: 01-Home or Self Care Attending Physician: Sathya Goyal MD Admitting Physician: Sathya Goyal MD Vital Signs Most recent to 1 oldest [Reference Range]: Blood Pressure 124/64 mmHg [90-140/60-90 mmHg] (03/19/16 3:00 PM) Mean Arterial 84 mmHg Pressure, Cuff (03/19/16 3:00 PM) Problem List Condition Effective Dates Status Health Status Informant Asthma(Confirmed) Active Head Active trauma(Confirmed)1 1CONCUSSION Allergies, Adverse Reactions, Alerts No Known Medication Allergies Medications amoxicillin 875 mg oral tablet 875 mg 1 tabs, Oral, BID, X 10 days, # 20 tabs, 0 Refill(s), Pharmacy: [facility] #[id number], 1 tabs Oral BID,x10 days Start Date: 03/19/16 Stop Date: 03/29/16 Status: Ordered ibuprofen 800 mg oral tablet 1 tabs, Oral, TID, # 60 tabs, 3 Refill(s), Pharmacy: [facility] #[id number], 1 tabs Oral TID Start Date: 12/24/14 Status: Ordered Results No data available for this section Immunizations Vaccine Date Refusal Reason varicella virus vaccine 05/22/99 Procedures No data available for this section Social History Social History Type Response Smoking Status Never smoker Assessment and Plan No data available for this section
--- OUTSIDE RECORDS SUMMARY | 2017-01-27 09:00 | XMS REPORT | Continuity of Care Document ---
Author Author Es Flores MA [facility] Address [address] [place] [address] [place] [address] Phone Care Team Providers Care Carburetor Expert Name Role Phone Goyal Sathya PP Unavailable Payers Payer name Insurance type Covered alliance party ID Authorization(s) Unknown Problems Condition Effective Dates (start - stop) Clinical Status Cellulitis of external ear - *Acute Pharyngitis - *Acute Pleuritis - *Acute Viral Infection, Unspecified - *Chronic Fever - *Acute Sore throat - *Acute Chest pain - *Acute Migraine headache - *Acute Upper Respiratory Infection, Acute - *Acute Other forms of migraine without mention of intractable migraine - *Acute Family History Family Member Diagnosis Age At Onset Status Unknown Social History Social History Element Description Quantity Unknown Allergies, Adverse Reactions, Alerts Substance Reaction Severity Status Unknown Medications Medication Instructions Dosage Effective Dates (start - stop) Status mupirocin 2 % topical ointment apply by topical route 3 times every day a small amount to the affected area 0 - Active sulfamethoxazole 800 mg-trimethoprim 160 mg tablet take 1 tablet by oral route every 12 hours for 7 days - Active Topamax 25 mg tablet take 2 tablet (50MG) by oral route 2 times every day in the morning and evening 50 MG - Active amoxicillin 875 mg tablet take 1 tablet (875MG) by oral route 2 times every day for 7 days - Active Immunizations Vaccine Date Status Comments varicella completed - Completed reason: source unspecified Results Test Name Date and Time Measure Units Reference Range Abnormal Flag Comments Panel Description: Rapid Strep-throat Rapid Strep-throat 18:50:00 Negative Negative Vital Signs Date / Time: Height Weight Pulse Rate Blood Pressure Temperature /18:30:00 65.25 in 125.00 lbs 96 /min 114/70 mm[Hg] 97.3 F Procedures Procedure Date Unknown Encounters Encounter Location Date Patient Visit [facility] Patient [facility] Patient [facility] Patient Visit [facility] Advance Directives Directive Effective Date Unknown
--- OUTSIDE RECORDS SUMMARY | 2017-01-27 09:00 | XMS REPORT | Continuity of Care Document ---
Author Author [facility] Organization [facility] Address Unknown Phone Unavailable Allergies Medications Problems Procedures Results Encounters ACCT No. Visit Date/Time Discharge Status Pt. Type Provider Facility Loc./Unit Complaint [id number] 12/21/2013 18:29:00 12/21/2013 23 :59:59 CLS Outpatient
--- OUTSIDE RECORDS SUMMARY | 2017-01-27 09:00 | XMS REPORT ---
Author Marjan Oliver [facility] Address [address] [place], [place] [id number] Care Team Providers Care Invoicing Machine Operator Name Role Phone Marjan Marquez Unavailable [phone] PROBLEMS Type Condition ICD9-CM Code [id number] Code Onset Dates Condition Status SNOMED Code Problem Mild intermittent asthma in adult without complication J45.20 Active 947111374 Assessment Right wrist pain M25.531 Nov, Active [id number] ALLERGIES Substance Reaction Event Type Date Status N.K.D.A. Unknown Non Drug Allergy Nov, Unknown SOCIAL HISTORY No smoking Hx information available PLAN OF CARE VITAL SIGNS Height 65 in 2016-12-12 Weight 133.0 lbs 2016-12-12 BMI 22.13 kg/m2 2016-12-12 Temperature 98.1 degrees Fahrenheit 2016-12-12 Heart Rate 84 /min 2016-12-12 Respiratory Rate 18 /min 2016-12-12 Blood pressure systolic 110 mm Hg 2016-12-12 Blood pressure diastolic 60 mm Hg 2016-12-12 MEDICATIONS Medication Instructions Dosage Frequency Start Date End Date Duration Status ProAir HFA 108 (90 Base) MCG/ACT Inhalation every 4 hrs 2 puffs as needed 4h Active RESULTS Name Result Date Reference Range X Ray : Wrist Right 2016-12-12 PROCEDURES Procedure Date Ordered Related Diagnosis Body Site DME-THUMB SPICA SPLINT 2016-12-12 N/A X-RAY EXAM OF WRIST Dec 12, 2016 OFFICE VISIT NEW PATIENT LEVEL 2 Dec 12, 2016 HFO WO JOINTS PF Dec 12, 2016 IMMUNIZATIONS No Known Immunizations
--- OUTSIDE RECORDS SUMMARY | 2017-01-27 09:01 | XMS REPORT | Continuity of Care Document ---
Author Author [facility] Organization [facility] Address Unknown Phone Unavailable Support Name Relationship Address Phone HAIDER BOSWELL MD Caregiver [address] [place] [phone] NEWTON LANDRUM MD Caregiver [address] [place] [phone] LISBETH AVILES Next Of Kin [address] [place] [address] Insurance Providers Payer Name Policy Number Subscriber Name Relationship Blue [employer] Other [id number] Lisbeth Aviles L 20 Child Advance Directives Directive Response Recorded Date/Time Advanced Directives Type None 10/04/14 9:15pm Problems Medical Problems Problem Onset Date Status Concussion Unknown Active Possible hairline fracture of spinous process Unknown Active Right ankle strain Unknown Active Right ankle strain Unknown Active Atypical chest pain Unknown Active Atypical chest pain Unknown Active Medications Medication Dose Route Sig Days/Qty Instructions Order Date Discontinued Date Status [no medications] 10/04/14 Active Social History Social History Problem Response Recorded Date/Time Chewing Tobacco Status No 01/18/2014 9:42pm Hx Substance Use No 10/04/2014 9:13pm Hx Alcohol Use No 10/04/2014 9:13pm Tobacco Usage none 01/18/2014 10:30pm Query Response Start Date Stop Date Smoking Status Never smoker Hospital Discharge Instructions No hospital discharge instructions. Plan of Care No plan of care. Functional Status Query Response Date Recorded Physical Hygiene Self October 04, 2014 9:13pm Disabilities None October 04, 2014 9:13pm Devices Used Glasses October 04, 2014 9:13pm Dressing Self October 04, 2014 9:13pm Ambulation Self October 04, 2014 9:13pm Diet Self October 04, 2014 9:13pm Mental Status Alert October 04, 2014 10:17pm Disabilities None October 04, 2014 9:13pm Devices Used Glasses October 04, 2014 9:13pm Physical Hygiene Self October 04, 2014 9:13pm Dressing Self October 04, 2014 9:13pm Ambulation Self October 04, 2014 9:13pm Diet Self October 04, 2014 9:13pm Allergies, Adverse Reactions, Alerts Allergen Type Severity Reaction Status Last Updated No Known Allergies Active 10/04/14 Immunizations No immunization records. Vital Signs Acute Vital Signs Vital Response Date/Time Temperature (Fahrenheit) 98.0 deg F (96.8 - 99.1) Temperature (Calculated Celsius) 36.90567 degrees C (36.0 - 37.3) Pulse Rate (adult) 90 bpm (60 - 100) Respiratory Rate 14 breaths/min (10 - 20) O2 Sat by Pulse Oximetry 100 % (90 - 100) Blood Pressure 127/79 mm Hg Height 5 ft 7 in Weight 129 lb Body Mass Index 20.0 kg/m^2 Results Test Source Date Result Interp. Ref. [...] 13, 2012 7:15pm 14.0 GM/DL N 11.5-16 Lymphocytes # (Auto) May 13, 2012 7:15pm [...] Has specimen been collected/obtained? Y Urine Specific [place] December 19, 2011 9:00pm 1.010 L - [...] 21, 2013 7:57pm LAB TEST FORM REQUEST [id number] - Immature Granulocyte # (Auto) May 13, 2012 7:15pm 0.02 T/MM3 N 0.00- 0.03 Immature Granulocyte % (Auto) May 13, 2012 7:15pm 0.2 % N 0.0-0.5 Group A Streptococcus Culture Throat December 21, 2013 6:50pm Name: KALPESH WAYNE Unit #: [id number] : 1995 Sex: F Loc / Svc: ED DOS: 07/24/14 Signed Report #: [id number] DIAGNOSTIC IMAGING REPORT TYPE OF EXAM: ANKLE RIGHT 3 VIEW Dictated By: KECIA OLEA MD Indication: ITS.REASON: PAIN,INJURY Comparison: April 24, 2011 Findings: There is no acute fracture, dislocation or malalignment identified. Impression: No acute osseous abnormality. . Procedures No known history of procedures. Encounters Encounter Location Date/Time Departed Emergency Room [facility] 10/04/14 9:13pm Departed Emergency Room [facility] 07/24/14 8:57pm Recent Diagnosis
[2017-01-27] MEDS ORDERED: ACET-62 PO (09:12)
--- OUTSIDE RECORDS SUMMARY | 2017-01-27 09:21 | XMS REPORT ---
Author Author [facility] Organization Unknown Address Unknown Phone Unavailable Care Team Providers Care Agriculture Instructor Name Role Phone UNASSIGNED DOCTOR , DOCTOR PP [phone] Reason For Visit Chief Complaint RIGHT WRIST [...]
--- OUTSIDE RECORDS SUMMARY | 2017-01-27 09:21 | XMS REPORT | Continuity of Care Document ---
Author Author [facility] Organization [facility] Address Unknown Phone Unavailable Support Name Relationship Address Phone RAJINDER MONTESINOS Caregiver [facility] [address] [place] [address] EASTON VELASQUEZ MD Caregiver [address] [place] [address] LISBETH AVILES Next Of Kin [address] [place] [address] Insurance Providers Payer Name Policy Number Subscriber Name Relationship Blue Cross Other [id number] Lisbeth Aviles L 20 Child Problems Medical [...] F (96.8 - 99.1) Temperature (Calculated Celsius) 37.16616 degrees C (36.0 - 37.3) Pulse Rate [...] Has specimen been collected/obtained? Y Urine Specific [place] December 19, 2011 9:00pm 1.010 L - [...] 21, 2013 7:57pm LAB TEST FORM REQUEST [id number] - Immature Granulocyte # (Auto) May 13, 2012 7:15pm 0.02 T/MM3 N 0.00- 0.03 Immature Granulocyte % (Auto) May 13, 2012 7:15pm 0.2 % N 0.0-0.5 Group A Streptococcus Culture Throat December 21, 2013 6:50pm Procedures No known history of procedures. Encounters Encounter Location Date/Time Departed Emergency Room [facility] 07/24/14 8:57pm Recent Diagnosis
--- OUTSIDE RECORDS SUMMARY | 2017-01-27 09:21 | XMS REPORT | Continuity of Care Document ---
Author Author [facility] Organization [facility] Address Unknown Phone Unavailable Allergies Medications Problems Procedures Results Encounters ACCT No. Visit Date/Time Discharge Status Pt. Type Provider Facility Loc./Unit Complaint [id number] 12/21/2013 18:29:00 12/21/2013 23 :59:59 CLS Outpatient
--- OUTSIDE RECORDS SUMMARY | 2017-01-27 09:21 | XMS REPORT | Continuity of Care Document ---
Author Author [facility] Organization [facility] Address Unknown Phone Unavailable Support Name Relationship Address Phone HAIDER BOSWELL MD Caregiver [address] [place] [phone] NEWTON LANDRUM MD Caregiver [address] [place] [phone] LISBETH AVILES Next Of Kin [address] [place] [address] Insurance Providers Payer Name Policy Number Subscriber Name Relationship [employer] Other [id number] Lisbeth Aviles L 20 Child Advance Directives [...] F (96.8 - 99.1) Temperature (Calculated Celsius) 36.68041 degrees C (36.0 - 37.3) Pulse Rate [...] Has specimen been collected/obtained? Y Urine Specific [place] December 19, 2011 9:00pm 1.010 L - [...] 21, 2013 7:57pm LAB TEST FORM REQUEST [id number] - Immature Granulocyte # (Auto) May 13, 2012 7:15pm 0.02 T/MM3 N 0.00- 0.03 Immature Granulocyte % (Auto) May 13, 2012 7:15pm 0.2 % N 0.0-0.5 Group A Streptococcus Culture Throat December 21, 2013 6:50pm Name: KALPESH WAYNE Unit #: [id number] : 1995 Sex: F Loc / Svc: ED DOS: 07/24/14 Signed Report #: [id number] DIAGNOSTIC IMAGING REPORT TYPE OF EXAM: ANKLE RIGHT 3 VIEW Dictated By: KECIA OLEA MD Indication: ITS.REASON: PAIN,INJURY Comparison: April 24, 2011 Findings: There is no acute fracture, dislocation or malalignment identified. Impression: No acute osseous abnormality. . Procedures No known history of procedures. Encounters Encounter Location Date/Time Departed Emergency Room [facility] 10/04/14 9:13pm Departed Emergency Room [facility] 07/24/14 8:57pm Recent Diagnosis
[2017-01-27] MEDS ORDERED: BUPIVACAINE 0.5%/EPI 1:200K *DENTAL* 1.8ml SYRINGE INJ ONE (09:30)
[2017-01-27] MEDS ORDERED: BENZOCAINE 20% MM ONE (09:45)
--- NOTE | 2017-01-27 09:56 | ERPDOC ---
Departure Disposition Decision Date: Jan 27, 2017 Disposition Decision Time: 09:50 Disposition: 01 DISCHARGED HOME, SELF-CARE Impression Impression Impression: Primary Impression: Dental abscess Additional Impression: Facial swelling Severity: Moderate Condition: Stable Seen By: Physician only Patient Instructions: Dental Abscess (ED) Problems/Meds/Labs Reviewed?: Yes Medications reviewed and manag: Yes Additional Instructions: Home to rest today. Start antibiotics as soon as you can. Take Ibuprofen 600- 800 mg every 6 hours with food for the pain. Supplement with [place] between doses as needed. Try to take the pain medication before the pain starts to get really bad to help keep it under control. Call in the morning to get in to the dentist for follow up. TAke ondansetron as needed for nausea. Follow up care ordered?: Yes Mental Status: Alert, Oriented Scripts Hydrocodone/Acetaminophen ([place] 5-325 Tablet) 5-325 Tablet 1-2 TAB PO Q6H Y for PAIN, #20 TAB 0 Refills Prov: AR HUMMEL MD 01/27/17 Amoxicillin (Amoxicillin) 875 Mg Tablet 1 TAB PO Q12H for 10 Days, #20 TAB Prov: AR HUMMEL MD 01/27/17 HPI General Chief Complaint: Maxillofacial Injury Stated Complaint: SWELLING OF CHEEK R SIDE OF FACE Time Seen by Provider: 09:03 Source: patient, RN notes reviewed, old records Exam Limitations: no limitations HPI Dental Initial Comments This patient comes in for dental pain on the right lower jaw that she thought at first was a wisdom tooth erupting. Yesterday the pain got a lot worse. She has only taken Tylenol for this pain. No fever. Today she is having marked facial swelling on the right. She is having some difficulty opening her mouth. No sore throat. no fever that she knows of. Occurred At: home Onset: Gradual Pain Scale: Now & Worst: 10/10 Location: R lower Associated Symptoms: cheek swelling, facial swelling, fever (low grade), trouble chewing Allergies: Coded Allergies: No Known Allergies (Unverified , 01/27/17) Past History Past Medical History Hx Echocardiogram: No Neurological: migraines Musculoskeletal: other Surgical History Denies Surgeries Family History Family PMH: FOUND: diabetes Vaccines Hx Influenza Vaccination: No Hx Pneumococcal Vaccination: No Social History Smoking Status: Never smoker Substance Use Type: does not use Alcohol Intake: none Record Review Pertinent history updated: Yes Review of Systems Constitutional Constitutional: appetite decrease, DENIES: chills, dizziness, fever, weakness Eyes General: DENIES: pain Lids/Accessories: DENIES: erythema Vision: DENIES: blurring ENMT Ears: DENIES: pain Hearing: DENIES: hearing loss Balance: DENIES: vertigo Sinuses: DENIES: congestion, rhinorrhea Mouth/Throat: DENIES: sore throat Teeth: pain, see HPI Jaw: limited opening of mouth, pain, see HPI Cardiovascular Cardiac: DENIES: chest pain Rhythm/Rate: DENIES: palpitations Vascular: DENIES: pedal edema, unilateral swelling Pulmonary Respiratory: DENIES: cough, dyspnea, sputum GI Upper Abdomen: DENIES: heartburn/indigestion, nausea, vomiting Lower Abdomen: DENIES: blood in stool, constipation, diarrhea General: DENIES: dysuria, hematuria Female: DENIES: vaginal discharge Musculoskeletal General: DENIES: joint pain, pain Integumentary Skin: DENIES: itching, rash Neurological General: DENIES: headache, memory disturbances, seizures, syncope Psychiatric Psychiatric: DENIES: anxiety, depression Endocrine Endocrine: DENIES: heat/cold intolerance Hematologic/Lymphatic Hematologic/Lymphatic: DENIES: anemia, easy bruising Allergic/Immunological Allergic/Immunoligical: DENIES: hives All other Systems All Other Systems: Reviewed and Negative Exam General General Nourishment: well nourished, well developed, appears stated age, adult General Body Habitus: well groomed Vital Signs: RN Vital Signs have been reviewed: Yes Height (Feet): 5 Height (Inches): 5.00 Comments low grade fever noted [facility] Dental Face: swelling (right side of face swollen) Jaw: asymmetry, trismus Glands: NOT FOUND: L parotid swollen, L submandibular swollen, R parotid swollen, R submandibular swollen Ducts: NOT FOUND: L Stensen's blocked, L Stensen's inflamed, L Lamb's blocked, L Lamb's inflamed, R Stensen's blocked, R Stensen's inflamed, R Lamb's blocked, R Andrew's inflamed Lips: NOT FOUDN: laceration, swelling Gums: moist, pink, NOT FOUND: exudate, swelling Tongue: NOT FOUND: swelling Teeth: caries, NOT FOUND: missing Pharynx: NOT FOUND: erythema, exudate, swelling Tonsils: NOT FOUND: erythema, exudate Neck: NOT FOUND: L anterior adenopathy, L posterior adenopathy, R anterior adenopathy, R posterior adenopathy Skin: NOT FOUND: rash 1 - tender to touch, caries noted Neurologic RN Documented GCS Eye Opening: Verbal: Motor: Total: Differential Diagnoses Considering: Caries, Tooth Fracture, Other (abscessed tooth) Procedures Procedures Performed Procedures Performed: Dental Block Dental Block Procedure Dental Block : Location: other (inferior alveolar) Method: internal approach Anesthetic: 0.5% Bupivicaine Pain Scale Post: 9 Progress Results/Orders Orders Lab Results Medications Current ED Medications Bupivacaine HCl/ Epinephrine Bitart (Marcaine *Dental*) 1.8 ml O ONCE INJ Last administered on 01/27/17 09:30; Start 01/27/17 at 09:30; Stop 01/27/17 at 09: 31; Status DC Benzocaine (Anbesol) 1 applic O ONCE MM Last administered on 01/27/17 09:45; Start 01/27/17 at 09:45; Stop 01/27/17 at 09:46; Status DC Acetaminophen/ Hydrocodone Bitart ([place] 7.5/325) 1 tab O ONCE PO Last administered on 01/27/17 09:57; Start 01/27/17 at 10:00; Stop 01/27/17 at 10:01; Status DC Ondansetron HCl (Zofran) 4 mg O ONCE IV Last administered on 01/27/17 10:59; Start 01/27/17 at 10:30; Stop 01/27/17 at 10:32; Status DC Morphine Sulfate 4 mg 4 mg O ONCE IV Last administered on 01/27/17 11:39; Start 01/27/17 at 11:30; Stop 01/27/17 at 11:31; Status DC Piperacillin Sod/ Tazobactam Sod/ Sodium Chloride (Zosyn/NS) 100 ml @ 200 mls/ hr Q6HR IV Last administered on 01/27/17 12:21; Start 01/27/17 at 15:00; Stop at 15:00; Status DC Morphine Sulfate (Morphine) 2 mg O ONCE IV Last administered on 01/27/17 12:20 ; Start 01/27/17 at 12:15; Stop 01/27/17 at 12:16; Status DC Prochlorperazine Edisylate (Compazine) 10 mg STK-MED ONCE IV ; Start 01/27/17 at 12:30; Stop 01/28/17 at 08:52; Status DC Progress Progress Initially tried dental block which provided limited relief. As such felt that more workup was indicated. CBC drawn which showed mild leukocytosis and CT done which confirmed facial swelling but no localized abscess or compromise to airway. Initial dose of IV antibiotics given along with analgesics. Patient urged to call dentist in the morning. CT Date CT Interpreted for Carlyn: Jan 27, 2017 CT : CT: Other (maxillofacial) Interpretation: Abnormal (radiologist called to see if this was a trauma versus other -- swelling noted to be consistent with cellulitis/myositis), Discussed w/ Radiologist AR HUMMEL MD Jan 27, 2017 09:56
[2017-01-27] MEDS ORDERED: AMOX875T2 PO (10:01)
[2017-01-27] MEDS ORDERED: ONDANSETRON 4mg/2ml INJECTION IV ONE (10:30)
[2017-01-27 11:05] LABS: BASOPHILS # (AUTO) 0.1 T/MM3 (0-0.2); BASOPHILS % (AUTO) 0.5 % (0-2); EOSINOPHILS # (AUTO) 0.1 T/MM3 (0-0.5); HCT - HEMATOCRIT 40.5 % (36-46); HGB - HEMOGLOBIN 13.6 GM/DL (12-16); IMMATURE GRANULOCYTE # (AUTO) 0.03 T/MM3 (0.00-0.03); IMMATURE GRANULOCYTE % (AUTO) 0.2 % (0.0-0.5); LYMPHOCYTES % (AUTO) 14.5 % (23-45); MEAN CORPUSCULAR HGB 30.2 UUG (26-34); MEAN CORPUSCULAR HGB CONC(MCHC 33.6 GM/DL (31-37); MEAN CORPUSCULAR VOLUME 89.8 UM3 (80-100); MONOCYTES # (AUTO) 1.3 T/MM3 (0-0.8); MONOCYTES % (AUTO) 9.6 % (0-9.0); NEUTROPHILS #(AUTO)-ABSOLUTE 10.2 T/MM3 (1.8-7.7); NEUTROPHILS % (AUTO) 74.2 % (33-66); RED BLOOD COUNT 4.51 M/MM3 (4.00-5.20); WBC - WHITE BLOOD COUNT 13.7 T/MM3 (4.5-11.0)
--- NOTE | 2017-01-27 11:19 | NUR ---
TO CT PER W/C.
--- NOTE | 2017-01-27 11:27 | NUR ---
BACK FROM CT
[2017-01-27] MEDS ORDERED: MORPHINE SULFATE 4 MG SYRINGE IV ONE (11:30)
[2017-01-27] MEDS ORDERED: HYDR-4246 PO (12:08)
--- NOTE | 2017-01-27 12:10 | NUR ---
PROVIDER DR Boni HUMMEL IN TO SEE PATIENT.
[2017-01-27] MEDS ORDERED: MORPHINE SULFATE 2 MG SYRINGE IV ONE (12:15)
[2017-01-27] MEDS ORDERED: PROCHLORPERAZINE 10mg/2ml INJECTION IV ONE (12:30)
[2017-01-27 13:00] VITALS: BP 117/64; PULSE 70; RESP 18; TEMP 99; O2SAT 98
--- NOTE | 2017-01-27 13:01 | DI ---
Indication: ITS.REASON: swelling right jaw/face -- poss abscess PROCEDURE: CT MAXILLOFACIAL W/O CONTRAST: Encounter: Initial Comparison: None Technique: Axial noncontrast CT images through the mid face were performed with coronal and sagittal two-dimensional reformats. Automated Exposure Control and Iterative Reconstruction dose reducing techniques were utilized. Findings: Periapical abscess surrounding the right mandibular first molar. There is a large dental caries in this tooth as well. No acute maxillofacial fracture. There is also a periapical abscess involving the right third molar. Large central tear involving the left maxillary first molar. The sinuses are clear. Soft tissue swelling in the right mandibular region with significant inflammatory change overlying the right mandible. No obvious focal fluid collection or abscess seen on this noncontrast study. Impression: Dental and periodontal disease, greatest in the right mandibular area with significant surrounding subcutaneous inflammation consistent with at least a cellulitis/myositis. No drainable abscess identified. There is a preliminary report by [facility]. .
[2017-01-27] MEDS ORDERED: PIPERACILLIN/TAZOBACTAM 3.375 G in NORMAL SALINE 100 ML IV SCH (15:00)
== END 2017-01-27 13:00 | disposition home or self-care (01) ==
LOC: ED 08:55
DX: K04.7 Periapical abscess without sinus (principal)
CPT/HCPCS: 64400; 70486; 84703; 85025; 96365; 96375; 96376; 99284; J0780; J2405; J2543; J7050; S0020